=== PATIENT | female | born 1950 | race Caucasian/White ===

== ENCOUNTER 2021-01-11 04:43 | Day surgery (SDC) | payer OTHER ==
[2021-01-09 09:08] VITALS: BMI 29.7
[2021-01-11 09:20] VITALS: TEMP 97
[2021-01-11 09:30] VITALS: PULSE 59
[2021-01-11 10:16] VITALS: BP 124/58
== END 2021-01-11 10:17 | disposition home or self-care (01) ==
LOC: JASU-ENDO 04:43
PROVIDERS: ATTEND Internal Medicine Gastroenterology
PROC: 0DB68ZX Excision of Stomach, Via Natural or Artificial Opening Endoscopic, Diagnostic (ICD-10-PCS; 2021-01-11)
PROC: 0DBG8ZX Excision of Left Large Intestine, Via Natural or Artificial Opening Endoscopic, Diagnostic (ICD-10-PCS; principal; 2021-01-11 08:44)
DX: Z12.11 Encounter for screening for malignant neoplasm of colon (principal); D12.6 Benign neoplasm of colon, unspecified; K29.50 Unspecified chronic gastritis without bleeding
CPT/HCPCS: 88305-TC; 88342-TC

== ENCOUNTER 2022-05-12 16:11 | Observation (INO) | payer OTHER ==
[2022-05-12] MEDS ORDERED: SODIUM CHLORIDE 1,000 ML IV STA (17:22)
[2022-05-12 18:07] LABS: BASO % 0.9 % (0-2.0); EOS % 0.8 % (0-4.5); HEMATOCRIT 41.1 % (32.4-45.2); HEMOGLOBIN 13.3 GM/dL (10.7-15.3); LYMPH % 21.4 % (8-40); MCH 29.1 pg (25.7-33.7); MCHC 32.5 g/dl (32.0-36.0); MEAN CELL VOLUME 89.5 fl (80-96); MEAN PLT VOLUME 8.9 fl (7.5-11.1); MONO % 7.2 % (3.8-10.2); NEUT % 69.7 % (42.8-82.8); PLATELET COUNT 298 10^3/uL (134-434); RBC 4.59 M/mm3 (3.60-5.2); RDW 14.1 % (11.6-15.6); WHITE BLOOD COUNT 7.1 K/mm3 (4.0-10.0)
[2022-05-12 18:14] LABS: EPI CELLS 4 /uL (0-25.1); HYALINE CASTS 0 /uL (0-3.1); INR 0.97 (0.83-1.09); PROTHROMBIN TIME (PATIENT) 11.1 SEC (9.7-13.0); URINE APPEARANCE CLEAR; URINE BACTERIA 18 /uL (0-1359); URINE BILIRUBIN NEGATIVE (NEGATIVE); URINE COLOR YELLOW; URINE GLUCOSE (UA) TRACE (NEGATIVE); URINE KETONE NEGATIVE (NEGATIVE); URINE LEUK ESTERASE 1+ (NEGATIVE); URINE NITRITE NEGATIVE (NEGATIVE); URINE PROTEIN NEGATIVE (NEGATIVE); URINE RBC 7 /uL (0-23.9); URINE UROBILINOGEN 0.2 mg/dL (0.2-1.0); URINE WBC 21 /uL (0-25.8)
[2022-05-12 18:17] LABS: ACTIVATED PTT 28.4 SECONDS (25.2-36.5)
[2022-05-12 18:34] LABS: CALCIUM 9.1 mg/dL (8.5-10.1)
[2022-05-12 18:35] LABS: ALBUMIN 3.6 g/dl (3.4-5.0); BLOOD UREA NITROGEN 10.8 mg/dL (7-18)
[2022-05-12 18:38] LABS: CREATININE 0.5 mg/dL (0.55-1.3)
[2022-05-12 18:39] LABS: BILIRUBIN,TOTAL 0.3 mg/dL (0.2-1); TOT PROT 7.4 g/dl (6.4-8.2)
[2022-05-12 18:43] LABS: N-TERMINAL BNP 17.3 pg/ml (5-125)
[2022-05-13] MEDS ORDERED: SODIUM CHLORIDE 1,000 ML IV SCH (03:45)
[2022-05-13 07:15] LABS: BASO % 1.2 % (0-2.0); LYMPH % 43.2 % (8-40); MCH 29.3 pg (25.7-33.7); MCHC 32.6 g/dl (32.0-36.0); MEAN CELL VOLUME 89.9 fl (80-96); MEAN PLT VOLUME 8.7 fl (7.5-11.1); MONO % 8.2 % (3.8-10.2); NEUT % 45.4 % (42.8-82.8); PLATELET COUNT 286 10^3/uL (134-434); RBC 4.45 M/mm3 (3.60-5.2); RDW 13.9 % (11.6-15.6); WHITE BLOOD COUNT 5.5 K/mm3 (4.0-10.0)
[2022-05-13 07:47] LABS: ALBUMIN 3.3 g/dl (3.4-5.0); BILIRUBIN,TOTAL 0.3 mg/dL (0.2-1); TOT PROT 6.4 g/dl (6.4-8.2)
[2022-05-13 07:48] LABS: BLOOD UREA NITROGEN 9.6 mg/dL (7-18)
[2022-05-13 07:49] LABS: PHOSPHOROUS 3.7 mg/dL (2.5-4.9)
[2022-05-13 07:51] LABS: CREATININE 0.4 mg/dL (0.55-1.3)
[2022-05-13] MEDS ORDERED: CEFTRIAXONE 1 GM/50 ML BAG ONE (10:13)
[2022-05-13] MEDS ORDERED: amLODIPine BESYLATE 10 MG TABLET (FP) ONE (10:13)
[2022-05-13] MEDS ORDERED: ENOXAPARIN NA (PORCINE) 40 MG/0.4 ML DISP.SYRIN SQ ONE (10:13)
[2022-05-13] MEDS: amLODIPine BESYLATE 10 MG TABLET (FP) PO SCH (10:16)
[2022-05-13] MEDS: CEFTRIAXONE 1 GM in DEXTROSE 5%-WATER - 50 ML IVPB SCH (10:16)
[2022-05-13] MEDS: ENOXAPARIN NA (PORCINE) 40 MG/0.4 ML DISP.SYRIN SQ SCH (10:16)
[2022-05-13] MEDS: INSULIN SLIDING SCALE (NOVOLOG) 1 VIAL SQ SCH ×4 (11:16→22:44)
[2022-05-13] MEDS ORDERED: ATORVASTATIN CA 20 MG TABLET (FP) PO SCH (22:00)
[2022-05-13] MEDS ORDERED: ATORVASTATIN CA 20 MG TABLET (FP) ONE (22:45)
[2022-05-14] MEDS ORDERED: amLODIPine BESYLATE 10 MG TABLET (FP) ONE (09:36)
[2022-05-14] MEDS ORDERED: CEFTRIAXONE 1 GM/50 ML BAG ONE (09:37)
[2022-05-14] MEDS ORDERED: ENOXAPARIN NA (PORCINE) 40 MG/0.4 ML DISP.SYRIN SQ ONE (09:37)
[2022-05-14] MEDS: amLODIPine BESYLATE 10 MG TABLET (FP) PO SCH (10:13)
[2022-05-14] MEDS: ENOXAPARIN NA (PORCINE) 40 MG/0.4 ML DISP.SYRIN SQ SCH (10:13)
[2022-05-14] MEDS: CEFTRIAXONE 1 GM in DEXTROSE 5%-WATER - 50 ML IVPB SCH (10:13)
[2022-05-14] MEDS: INSULIN SLIDING SCALE (NOVOLOG) 1 VIAL SQ SCH (11:24)
[2022-05-14] MEDS ORDERED: SODIUM CHLORIDE 0.45% 1,000 ML IV SCH (13:00)
[2022-05-14 13:40] VITALS: BP 113/64; PULSE 68; RESP 18; TEMP 97.9
== END 2022-05-14 14:57 | disposition left against medical advice (07) ==
LOC: JER 16:11 → JERBED 18:23 → INTOOBSV 18:23
PROVIDERS: ADMIT Internal Medicine; ATTEND Internal Medicine
PROC: 3E03329 Introduction of Other Anti-infective into Peripheral Vein, Percutaneous Approach (ICD-10-PCS; principal; 2022-05-12)
PROC: 3E023GC Introduction of Other Therapeutic Substance into Muscle, Percutaneous Approach (ICD-10-PCS; 2022-05-12)
PROC: 3E0337Z Introduction of Electrolytic and Water Balance Substance into Peripheral Vein, Percutaneous Approach (ICD-10-PCS; 2022-05-12)
DX: H81.10 Benign paroxysmal vertigo, unspecified ear (principal); I10 Essential (primary) hypertension; N39.0 Urinary tract infection, site not specified; R07.89 Other chest pain; R06.02 Shortness of breath; R11.0 Nausea; R07.9 Chest pain, unspecified; Z85.3 Personal history of malignant neoplasm of breast; E66.8 Other obesity; Z68.30 Body mass index [BMI] 30.0-30.9, adult
CPT/HCPCS: 0241U-QW; 36415; 71046-TC-FY; 80053; 80061; 81003; 82962; 83735; 83880; 84100; 84443; 84484; 85025; 85610; 85730; 87086; 93005; 93010; 93306-TC; 93880-TC; 96361; 96365; 96372; 99285-25; G0378